=== PATIENT | female | born 1955 | race Caucasian/White ===

== ENCOUNTER → 2017-08-26 | Day surgery (SDC) | payer OTHER, SELFPAY | END | disposition home or self-care (01) | PROVIDERS: PCP Family Medicine; Visit Provider Ophthalmology | DX: H25.11 Age-related nuclear cataract, right eye (principal); G47.33 Obstructive sleep apnea (adult) (pediatric); E11.9 Type 2 diabetes mellitus without complications; Z79.4 Long term (current) use of insulin | CPT/HCPCS: J2250; J2704; J3010 ==

== ENCOUNTER 2021-10-22 08:12 | Observation (INO) | payer MEDICARE, OTHER, SELFPAY ==
[2021-10-22] VITALS (15 sets, daily range): BP systolic 117–154; BP diastolic 60–82; PULSE 61–94; RESP 10–24; TEMP 36.4–36.7; O2SAT 92–96; BMI 38.9
--- NOTE | 2021-10-22 08:43 | ED_ITS ---
HPI - Neuro Symptoms/Deficit General Chief Complaint: Neuro Symptoms/Deficit Stated Complaint: Right facial numbness Time Seen by Provider: 10/22/21 08:35 History of Present Illness HPI Narrative: 66-year-old woman with a history of diabetes, hyperlipidemia she describes no difficulties with hypertension but is on losartan, thyroid cancer in 2013 with no residual issues at this time presents with complaints of right facial numbness, facial droop and tongue being numb. She states that her entire tongue has been numb for approximately 24 hours at this time. She describes it as feel ing as if she went to the dentist. She also notes that she has not tasting as well. She had a bagel yesterday morning and did not taste it which is when she 1st be came aware of symptoms. She does note that she has had some mild nasal stuffiness and a slight scratch in her throat and has been doing some travel. She is fully vaccinated against COVID and viral type symptoms have not progressed beyond that. This morning at 7:30 a.m. she noted that the right side of her face was numb and when she looked in the mirror she was concerned that she had some mild facial asymmetry. She called her daughter this morning when she noted the acute onset of facial. code stroke initiated Related Data Home Medications Medication Instructions Recorded Confirmed aspirin 81 mg chewable tablet 81 mg PO QDAY ##0 06/03/17 insulin glargine 100 unit/mL (3 0 unit SQ QDAY ##0 06/03/17 mL) subcutaneous pen (Lantus Solostar U-100 Insulin) levocetirizine 5 mg tablet 5 mg PO QDAY ##0 06/03/17 levothyroxine 200 mcg tablet ##0 06/03/17 losartan 50 mg tablet (Cozaar) 50 mg PO QDAY ##0 06/03/17 metformin 1,000 mg tablet 1,000 mg PO BIDCC ##0 06/03/17 (Glucophage) multivitamin (Multiple Vitamins 1 tab PO QDAY ##0 06/03/17 tablet) Allergies Allergy/AdvReac Type Severity Reaction Status Date / Time lisinopril [LISINOPRIL] Allergy Unknown Verified 10/22/21 08:42 Review of Systems Review of Systems Narrative: Remainder of complete review of systems is otherwise unremarkable except for that included in the HPI. Patient History Medical History (Updated 10/22/21 @ 17:20 by Cheyanne Gipson MD) Diabetes Hyperlipidemia Hypertension Thyroid cancer Social History Smoking Status: Never smoker Exam Initial Vital Signs Initial Vital Signs: Vital Signs Pulse Rate 87 10/22/21 08:18 Blood Pressure 146/69 H 10/22/21 08:18 Pulse Oximetry 94 10/22/21 08:18 General: Healthy appearing, in no acute distress. Able to give a complete and coherent history. Well-nourished well-developed HEENT: Moist mucous membranes, normal sclera with reactive pupils, mild flattening of the right nasal labial fold Neck: No JVD, supple Respiratory: Lungs are clear to auscultation, no wheezing no rales no rhonchi. Full and symmetrical air movement Cardiac: Regular rate and rhythm no murmurs no bruits Abdomen: Soft, nontender, good bowel tones, no flank pain Skin: Warm and dry, no rashes Neurologic: Mild paresthesia right side of the face, mild flattening nasal labial fold, tongue protrudes slightly to the left when extended. NIH score= 2 Extremities: No trauma, well perfused Psych: Cooperative, appropriate insight and affect NIH Stroke Scale/Score (NIHSS)? 2 points INPUTS: 1A: Level of consciousness ?> 0 = Alert; keenly responsive 1B: Ask month and age ?> 0 = Both questions right 1C: 'Blink eyes' & 'squeeze hands' ?> 0 = Performs both tasks 2: Horizontal extraocular movements ?> 0 = Normal 3: Visual zelaya ?> 0 = No visual loss 4: Facial palsy ?> 1 = Minor paralysis (flat nasolabial fold, smile asymmetry) 5A: Left arm motor drift ?> 0 = No drift for 10 seconds 5B: Right arm motor drift ?> 0 = No drift for 10 seconds 6A: Left leg motor drift ?> 0 = No drift for 5 seconds 6B: Right leg motor drift ?> 0 = No drift for 5 seconds 7: Limb Ataxia ?> 0 = No ataxia 8: Sensation ?> 1 = Mild-moderate loss: less sharp/more dull? 9: Language/aphasia ?> 0 = Normal; no aphasia 10: Dysarthria ?> 0 = Normal 11: Extinction/inattention ?> 0 = No abnormality Course Orders Ordered: ED Orders 10/22/21 08:30 Complete Blood Count AUTO DIFF Stat Comprehensive Metabolic Panel Stat Lipid Panel Routine 10/22/21 08:45 CT Stroke Stat EKG-12 Lead Stat 10/22/21 08:48 COVID19 -Nasal RAPID/Pre-Proc Stat 10/22/21 09:15 CT angio head and neck Stat 10/22/21 11:16 EC echo doppler complete Urgent MR head/brain wo con Urgent 10/22/21 11:17 Education, smoking cessation ONGOING 10/22/21 11:20 Consult to Occupational Therapy Evaluate & Treat Consult to Physical Therapy Evaluate & Treat 10/22/21 11:21 Consult to Speech Therapy Evaluate & Treat 10/22/21 11:35 Urine Culture Stat Urine Microscopic Stat 10/23/21 05:00 Basic Metabolic Panel DAILY Complete Blood Count AUTO DIFF DAILY 10/24/21 05:00 Basic Metabolic Panel DAILY Complete Blood Count AUTO DIFF DAILY 10/25/21 05:00 Basic Metabolic Panel DAILY Complete Blood Count AUTO DIFF DAILY 10/26/21 05:00 Basic Metabolic Panel DAILY Complete Blood Count AUTO DIFF DAILY Aspirin (Aspirin Ec 81 Mg Tablet) 81 mg PO DAILY [facility] Atorvastatin Calcium (Atorvastatin 20 Mg Tablet) 40 mg PO BEDTIME BRIANDA Clopidogrel Bisulfate (Clopidogrel 75 Mg Tablet) 75 mg PO DAILY [facility] Enoxaparin Sodium (Enoxaparin 40 Mg/0.4 Ml Syringe) 40 mg SUBCUT DAILY BRIANDA Sodium Chloride (Normal Saline 0.9%) 1,000 mls @ 150 mls/hr IV CONT BRIANDA Last Admin: 10/22/21 10:28 Dose: 150 mls/hr Documented By: MLHilario Sodium Chloride (Normal Saline 0.9%) 1,000 mls @ 100 mls/hr IV CONT BRIANDA Dextrose (D10w) 250 mls @ 999 mls/hr IV PRN PRN PRN Reason: Hypoglycemia Insulin Human Lispro (Insulin Lispro 100 Unit/Ml 3ml Vial) 0 unit SUBCUT Q6H [facility]; Protocol Naloxone HCl (Naloxone 0.4 Mg/Ml Vial) 0.2 mg IV Q2MIN PRN PRN Reason: Opiate Reversal Discontinued Medications Aspirin (Aspirin 81 Mg Chew Tab) 324 mg PO NOW ONE Stop: 10/22/21 10:16 Last Admin: 10/22/21 10:28 Dose: 324 mg Documented By: MLM Clopidogrel Bisulfate (Clopidogrel 75 Mg Tablet) 300 mg PO NOW ONE Stop: 10/22/21 10:16 Last Admin: 10/22/21 10:28 Dose: 300 mg Documented By: MLM Dextrose (Dextrose 50 % In Water 25 Gm/50 Ml Syringe) 25 gm IV PRN PRN; Protocol PRN Reason: Hypoglycemia Vital Signs Vital signs: Vital Signs - 8 hr 10/22/21 09:30 10/22/21 10:00 10/22/21 10:30 Pulse Rate 69 68 69 Respiratory Rate 17 15 24 Blood Pressure Pulse Oximetry 94 94 94 10/22/21 10:32 10/22/21 10:32 10/22/21 11:00 Pulse Rate 73 66 Respiratory Rate 23 10 L Blood Pressure 141/66 H Pulse Oximetry MDM - Neuro Symptoms/Deficit Lab Data Result diagrams: 10/22/21 08:30 10/22/21 08:30 Labs: Lab Results 10/22/21 10/22/21 10/22/21 Range/Units 08:30 08:30 08:30 WBC 8.4 (4.5-11.0) X10^3/uL RBC 4.91 (4.0-5.2) X10^6/uL Hgb 13.2 (12.0-16.0) g/dL Hct 39.6 (36-46) % MCV 80.5 (80-100) fL MCH 26.9 (26-34) PG MCHC 33.4 (30-36) % RDW 14.8 (11.6-14.8) % Plt Count 287 (150-400) X10^3/uL Neut % (Auto) 73.6 (50-75) % Lymph % (Auto) 19.5 L (25-40) % [place] % (Auto) 5.3 (3-14) % Eos % (Auto) 0.9 L (2-4) % Baso % (Auto) 0.7 (0-2) % Neut # (Auto) 6200 (8584-1228) /uL Lymph # (Auto) 1600 (1822-2210) /uL [place] # (Auto) 400 (0-900) /uL Eos # (Auto) 100 (0-450) /uL Baso # (Auto) 100 (0-100) /uL Sodium 139 (137-145) mmol/L Potassium 3.9 (3.4-5.1) mmol/L Chloride 102 (98-107) mmol/L Carbon Dioxide 25 (22-32) mmol/L BUN 23 H (7-17) mg/dL Creatinine 0.68 (0.52-1.04) mg/dL Estimated GFR > 60 (>60) mL/min BUN/Creatinine Ratio 33.8 H (6-22) Glucose 194 H (80-110) mg/dL Calcium 8.5 (8.4-10.2) mg/dL Total Bilirubin 0.5 (0.2-1.3) mg/dL AST 25 (14-36) IU/L ALT 23 (<35) IU/L Alkaline Phosphatase 70 (38-126) U/L Total Protein 7.0 (6.3-8.2) g/dL Albumin 3.9 (3.5-5.0) g/dL Globulin 3.1 (1.7-4.1) g/dL Albumin/Globulin Ratio 1.3 (1.0-2.8) Triglycerides 178 H (35-150) mg/dL Cholesterol 227 H (140-199) mg/dL LDL Cholesterol, Calc 143 H (<100) mg/dL HDL Cholesterol 48 (40-60) mg/dL Urine RBC (0-5/HPF) Urine WBC (0-5/HPF) Ur Squamous Epith Cells (0-5/HPF) Urine Bacteria (None) Ur Culture Indicated? SARS-CoV-2 (PCR) (Negative) 10/22/21 10/22/21 Range/Units 08:48 11:35 WBC (4.5-11.0) X10^3/uL RBC (4.0-5.2) X10^6/uL Hgb (12.0-16.0) g/dL Hct (36-46) % MCV (80-100) fL MCH (26-34) PG MCHC (30-36) % RDW (11.6-14.8) % Plt Count (150-400) X10^3/uL Neut % (Auto) (50-75) % Lymph % (Auto) (25-40) % [place] % (Auto) (3-14) % Eos % (Auto) (2-4) % Baso % (Auto) (0-2) % Neut # (Auto) (8539-3444) /uL Lymph # (Auto) (1029-1833) /uL [place] # (Auto) (0-900) /uL Eos # (Auto) (0-450) /uL Baso # (Auto) (0-100) /uL Sodium (137-145) mmol/L Potassium (3.4-5.1) mmol/L Chloride (98-107) mmol/L Carbon Dioxide (22-32) mmol/L BUN (7-17) mg/dL Creatinine (0.52-1.04) mg/dL Estimated GFR (>60) mL/min BUN/Creatinine Ratio (6-22) Glucose (80-110) mg/dL Calcium (8.4-10.2) mg/dL Total Bilirubin (0.2-1.3) mg/dL AST (14-36) IU/L ALT (<35) IU/L Alkaline Phosphatase (38-126) U/L Total Protein (6.3-8.2) g/dL Albumin (3.5-5.0) g/dL Globulin (1.7-4.1) g/dL Albumin/Globulin Ratio (1.0-2.8) Triglycerides (35-150) mg/dL Cholesterol (140-199) mg/dL LDL Cholesterol, Calc (<100) mg/dL HDL Cholesterol (40-60) mg/dL Urine RBC None seen (0-5/HPF) Urine WBC 30-100/hpf H (0-5/HPF) Ur Squamous Epith Cells 1-5 /hpf (0-5/HPF) Urine Bacteria Many (>30) H (None) Ur Culture Indicated? Specimen cultured SARS-CoV-2 (PCR) Negative (Negative) Point of Care Testing Glucose POC 73 Urine Dip Bedside Urine Glucose Negative Bedside Urine Bilirubin - Negative Bedside Urine Ketone - Negative Urine Specific [place] 1.010 Bedside Urine Occult Blood - Negative Bedside Urine pH 6.0 Bedside Urine Protein - Negative Bedside Urine Urobilinogen - Negative Bedside Urine Nitrite - Negative Bedside Urine Leukocytes ++ [address] scan - head: Radiologist's Impression: FINDINGS:? Image quality:? Excellent.? ? CSF spaces:? Basal cisterns are patent.? No extra-axial fluid collections.? The ventricles are symmetric in size and shape.? ? Brain:? No intracranial bleeds or masses.? There is cerebral volume loss for age, with resultant ventricular and sulcal prominence.? There are periventricular and deep white matter chronic small vessel ischemic changes.? There is intracranial internal carotid artery atherosclerosis.? ? Skull and face:? Calvarium and visualized facial bones appear intact, without suspicious lesions.? ? Sinuses:? Visualized sinuses and mastoids are clear.? ? ? IMPRESSION:? Unremarkable intracranial study, without an imaging explanation found for the patient's presenting history.?? ? If there is strong clinical suspicion for an acute stroke, please consider a brain MRI for further evaluation, as it is more sensitive (assuming that there is no contraindication to MRI). ? ? Dictated by: Yuniel Gardner M.D. on 10/22/2021 at 7:53? ??CTA Head and neck CTA head and neck: Radiologist's Impression: FINDINGS:? Image quality:? Excellent.? ? BRAIN:? CSF spaces:? Ventricles are normal in size and shape.? Basal cisterns are patent.? No extra-axial fluid collections.? ? Brain:? No midline shift.? No intracranial bleeds or masses.? Sebastian-white matter interface appears intact.? Calcification can be seen within the region of the pineal gland, which is not considered to be pathologic. ? Skull and face:? Calvarium and facial bones appear intact, without suspicious lesions.? Orbits appear normal.? Incidental note is made of hyperostosis frontalis. This is not considered to be pathologic in a woman of this age. ? In this patient with this given history, scrutiny is given to the course of the right facial nerve, including within the right parotid gland.? No significant abnormalities can be seen on these images. ? Sinuses:? Sinuses and mastoids are clear.? ? HEAD CT ANGIOGRAPHY:? Anterior circulation:? Intracranial internal carotid arteries are normal in size and flow.? The flow within the paired anterior cerebral arteries is normal and symmetric.? The flow within the middle cerebral arteries is normal and symmetric.? The anterior communicating artery is seen.? No aneurysms are seen.? ? Posterior circulation:? Visualized portions of the vertebral arteries demonstrate normal caliber, and join to form a normal appearing basilar artery. There is a prominent left posterior communicating artery seen, with an accompanying diminutive left P1 segment. This is attributed to a type origin of the left posterior cerebral artery, which is considered to be a normal developmental variant of typically no clinical consequence. Flow within the posterior cerebral arteries is normal and symmetric.? No aneurysms are seen.? ? NECK CT ANGIOGRAPHY:? Carotid system:? The great vessels demonstrate a conventional anatomy as they arise from the aortic arch.? The origins of the common carotid arteries appear patent.? The common carotid arteries demonstrate normal caliber and courses.? The bifurcation regions are both widely patent.? The internal carotid arteries demonstrate normal calibers and courses.? ? Posterior circulation:? The origins of the vertebral arteries both appear widely patent.? The more superior extracranial portions of both vertebral arteries also demonstrate normal courses and calibers.? They join to form a normal appearing basilar artery.? ? Soft tissues:? Visualized neck soft tissues demonstrate no suspicious abnormalities.? Thyroidectomy change can be seen. ? Bones:? No suspicious bony lesions.? Visualized cervical spine appears normally aligned.? At least moderate disc space narrowing can be seen at C4-C5 and C5-C6.? Post erected endplate osteophytes are seen at these levels. Focal degenerative change is seen involving the C1-C2 interface anteriorly.? Milder degenerative changes are seen elsewhere.? ? ? IMPRESSION:? No significant intracranial arterial abnormality is seen.? ? Within the arteries of the neck, no hemodynamically significant stenosis can be seen. ? ? ? Incidental note is made of:? Cervical spine degenerative change Thyroidectomy ? Any quantitative measurements of stenosis were performed using NASCET criteria.? ? ? Dictated by: Yuniel Gardner M.D. on 10/22/2021 at 8:35? ?? ECG Data Interpretation: Sinus rhythm at a rate of 85 Normal intervals, normal axis No acute ischemic changes MDM Narrative Medical decision making narrative: 56-year-old woman with multiple risk factors for stroke presents with tongue numbness bilaterally for 24 hours, mild right-sided faced weakness starting at 7:30 a.m. this morning. No obvious abnormalities on head CT or CTA. No evidence of infection or acute coronary syndrome. 10:[address] Kay Smith, Stroke neurology. load with plavix 300 and dual antiplatels for 21 days. Agrees with NO TPA due to timing (24 hours of numb tongue) and low NIH score (2). agrees with admit for remainder of stroke workup. Care is reviewed with the hospitalist and patient will be admitted for remainder of workup with MRI ordered for this afternoon. Stroke Core Measures Exclusion Criteria TPA in CVA: Symptom Onset >3 or 4.5 Hours Discharge Plan Departure Patient Disposition: Admitted As Inpatient Clinical Impression: Cerebrovascular accident Admit Date/Time: 10/22/21 13:35 Admit Provider: Elbert Garland
--- NOTE | 2021-10-22 08:45 | DI.CT.S_ITS ---
PROCEDURE: CT STROKE INDICATIONS: right facial droop and paresthesia TECHNIQUE: Noncontrast 4.5 mm thick angled axial sections acquired from the foramen magnum to the vertex, with coronal reformats. For radiation dose reduction, the following was used: automated exposure control, adjustment of mA and/or kV according to patient size. COMPARISON: None. FINDINGS: Image quality: Excellent. CSF spaces: Basal cisterns are patent. No extra-axial fluid collections. The ventricles are symmetric in size and shape. Brain: No intracranial bleeds or masses. There is cerebral volume loss for age, with resultant ventricular and sulcal prominence. There are periventricular and deep white matter chronic small vessel ischemic changes. There is intracranial internal carotid artery atherosclerosis. Skull and face: Calvarium and visualized facial bones appear intact, without suspicious lesions. Sinuses: Visualized sinuses and mastoids are clear. IMPRESSION: 1. No acute intracranial abnormalities. 2. Cerebral volume loss and chronic microvascular ischemic changes. The result was communicated with Dr. Gipson prior to dictation. This study fulfills neurological imaging criteria for inclusion or exclusion of acute stroke therapies based on available published neurological guidelines. Dictated by: Easton Hernandez M.D. on 10/22/2021 at 9:04 Approved by: Easton Hernandez M.D. on 10/22/2021 at 9:05
[2021-10-22 08:56] LABS: Add Manual Diff / Slide Review NO; Basophils Absolute Auto 100 /uL (0-100); Basophils Percent Auto 0.7 % (0-2); Eosinophils Absolute Auto 100 /uL (0-450); Eosinophils Percent Auto 0.9 % (2-4); Hematocrit 39.6 % (36-46); Hemoglobin 13.2 g/dL (12.0-16.0); Lymphocytes Absolute Auto 1600 /uL (1100-4500); Lymphocytes Percent Auto 19.5 % (25-40); Mean Corpuscular HGB Conc 33.4 % (30-36); Mean Corpuscular Hemoglobin 26.9 PG (26-34); Mean Corpuscular Volume 80.5 fL (80-100); Monocytes Absolute Auto 400 /uL (0-900); Monocytes Percent Auto 5.3 % (3-14); Neutrophils Absolute Auto 6200 /uL (1500-7000); Neutrophils Percent Auto 73.6 % (50-75); Platelet Count 287 X10^3/uL (150-400); Red Blood Cell Count 4.91 X10^6/uL (4.0-5.2); Red Cell Distribution Width 14.8 % (11.6-14.8); White Blood Cell Count 8.4 X10^3/uL (4.5-11.0)
[2021-10-22 08:59] LABS: Alanine Aminotransferase 23 IU/L (<35); Albumin 3.9 g/dL (3.5-5.0); Albumin Globulin Ratio 1.3 (1.0-2.8); Alkaline Phosphatase 70 U/L (38-126); Aspartate Aminotransferase 25 IU/L (14-36); BUN Creatinine Ratio 33.8 (6-22); Bilirubin Total 0.5 mg/dL (0.2-1.3); Blood Urea Nitrogen 23 mg/dL (7-17); Calcium 8.5 mg/dL (8.4-10.2); Carbon Dioxide 25 mmol/L (22-32); Chloride 102 mmol/L (98-107); Estimated Glomerular Filt Rate > 60 mL/min (>60); Globulin 3.1 g/dL (1.7-4.1); Glucose 194 mg/dL (80-110); HEMOLYSIS < 15 (0-50); Potassium 3.9 mmol/L (3.4-5.1); Sodium 139 mmol/L (137-145)
--- NOTE | 2021-10-22 09:15 | DI.CT.S_ITS ---
PROCEDURE: CT ANGIO HEAD AND NECK INDICATIONS: right facial droop and paresthesia TECHNIQUE: Noncontrast images were performed earlier in the day and not repeated. After the administration of intravenous contrast, 1 mm thick sections acquired from the aortic arch through the [place]. Post-contrast 4.5 mm thick sections then re-acquired from the foramen magnum to the vertex. 3-dimensional [id number] (MIP) and/or volume rendering reformats were acquired of the central intracranial vasculature and neck separately. For radiation dose reduction, the following was used: automated exposure control, adjustment of mA and/or kV according to patient size. COMPARISON: [facility], CT, CT STROKE, 10/22/2021, 8:50. FINDINGS: Image quality: Excellent. BRAIN: CSF spaces: Ventricles are normal in size and shape. Basal cisterns are patent. No extra-axial fluid collections. Brain: No midline shift. No intracranial bleeds or masses. Sebastian-white matter interface appears intact. Calcification can be seen within the region of the pineal gland, which is not considered to be pathologic. Skull and face: Calvarium and facial bones appear intact, without suspicious lesions. Orbits appear normal. Incidental note is made of hyperostosis frontalis. This is not considered to be pathologic in a woman of this age. In this patient with this given history, scrutiny is given to the course of the right facial nerve, including within the right parotid gland. No significant abnormalities can be seen on these images. Sinuses: Sinuses and mastoids are clear. HEAD CT ANGIOGRAPHY: Anterior circulation: Intracranial internal carotid arteries are normal in size and flow. The flow within the paired anterior cerebral arteries is normal and symmetric. The flow within the middle cerebral arteries is normal and symmetric. The anterior communicating artery is seen. No aneurysms are seen. Posterior circulation: Visualized portions of the vertebral arteries demonstrate normal caliber, and join to form a normal appearing basilar artery. There is a prominent left posterior communicating artery seen, with an accompanying diminutive left P1 segment. This is attributed to a type origin of the left posterior cerebral artery, which is considered to be a normal developmental variant of typically no clinical consequence. Flow within the posterior cerebral arteries is normal and symmetric. No aneurysms are seen. NECK CT ANGIOGRAPHY: Carotid system: The great vessels demonstrate a conventional anatomy as they arise from the aortic arch. The origins of the common carotid arteries appear patent. The common carotid arteries demonstrate normal caliber and courses. The bifurcation regions are both widely patent. The internal carotid arteries demonstrate normal calibers and courses. Posterior circulation: The origins of the vertebral arteries both appear widely patent. The more superior extracranial portions of both vertebral arteries also demonstrate normal courses and calibers. They join to form a normal appearing basilar artery. Soft tissues: Visualized neck soft tissues demonstrate no suspicious abnormalities. Thyroidectomy change can be seen. Bones: No suspicious bony lesions. Visualized cervical spine appears normally aligned. At least moderate disc space narrowing can be seen at C4-C5 and C5-C6. Post erected endplate osteophytes are seen at these levels. Focal degenerative change is seen involving the C1-C2 interface anteriorly. Milder degenerative changes are seen elsewhere. IMPRESSION: No significant intracranial arterial abnormality is seen. Within the arteries of the neck, no hemodynamically significant stenosis can be seen. Incidental note is made of: Cervical spine degenerative change Thyroidectomy Any quantitative measurements of stenosis were performed using NASCET criteria. Dictated by: Yuniel Gardner M.D. on 10/22/2021 at 8:35 Approved by: Yuniel Gardner M.D. on 10/22/2021 at 8:40
[2021-10-22 09:21] LABS: COVID19 -Nasal RAPID Negative (Negative)
[2021-10-22] MEDS: SODIUM CHLORIDE 0.9% 1,000 ML 150 ML IV (10:28)
[2021-10-22] MEDS: ASPIRIN 81 MG CHEW TAB 324 MG PO (10:28)
[2021-10-22] MEDS: CLOPIDOGREL 75 MG TABLET 300 MG PO (10:28)
--- NOTE | 2021-10-22 11:16 | DI.MRI.S_ITS ---
PROCEDURE: MR HEAD/BRAIN WO CON INDICATIONS: stroke. Being admitted. consider this an inpt (not ED) ord TECHNIQUE: Non-contrast axial T1 spin echo, axial T2 fast spin echo, sagittal and axial FLAIR, coronal T2 fast spin echo, axial gradient echo, axial diffusion and ADC through the brain. COMPARISON: [facility], CT, CT STROKE, 10/22/2021, 8:50. FINDINGS: Image quality: Excellent. CSF spaces: Ventricles appear symmetric in size and shape. Basal cisterns are patent. No extra-axial fluid collections. Brain: No restricted diffusion to indicate recent ischemia. The major intracranial vascular flow-related signal voids are maintained. Advanced global cerebral volume loss and severe chronic microvascular ischemic changes. No evidence of cytotoxic or vasogenic edema. No findings of mass effect or midline shift. Skull and face: Calvarial bone marrow is normal in signal. Orbits are normal. Sinuses: Sinuses and mastoids are clear. IMPRESSION: No acute infarct or other acute intracranial finding. Advanced moderate global cerebral volume loss and severe chronic microvascular ischemic changes. Dictated by: Brian Rios M.D. on 10/22/2021 at 12:23 Approved by: Brian Rios M.D. on 10/22/2021 at 12:27
--- NOTE | 2021-10-22 11:16 | DI.ECHO.S_ITS ---
[facility] +---------+ [facility] +---------+ : : [address] : : : : [id number] : : : : Phone: [phone] Echocardiogram Report + + :Name: ALEJO RETANA Study Date: 10/22/2021 Height: 65 in : :[facility] ReadingLocation: Weight: 234 lb : : Gender: Female BSA: 2.1 m2 : :: 1955 Age: 66 yrs BP: 146/69 mmHg: :Reason For Study: STROKE : :Ordering Physician: MEMO, : :THAD Lam Performed By: Hafsa Bennett : :Referring: THAD HAMPTON : + + Interpretation Summary The left ventricle is normal in size. The ejection fraction is estimated to be 60-65%. The right ventricle is normal in size and function. Injection of contrast documented no interatrial shunt. No significant valvular pathology seen. The IVC is dilated (diameter is greater than 2.1 cm) yet it collapses greater than 50% with a sniff. This suggests a right atrial pressure of 8 mm Hg. Procedure: A two-dimensional transthoracic echocardiogram with color flow and Doppler was performed. The study quality was technically adequate. There is no prior echocardiogram noted for this patient. The patient was in sinus rhythm with heart rates between 62-70 bpm during the exam. Left Ventricle: The left ventricle is normal in size. Left ventricular wall thickness is borderline increased. There is no thrombus. A false chord is noted (normal variant). The ejection fraction is estimated to be 60-65%. There are no focal wall motion abnormalities. MV E/A: 0.98 Med Peak E' Cachorro: 5.0 cm/sec E/E' med: 17.3. Right Ventricle: The right ventricle is normal in size and function. Atria: The left atrium is mildly dilated. Right atrial size is normal. There is no Doppler evidence for an interatrial shunt. Injection of contrast documented no interatrial shunt. Mitral Valve: The mitral valve leaflets appear mildly thickened, but open well. There is mild mitral annular calcification. Redundant elongated chordae are noted. There is trace mitral regurgitation. Aortic Valve: The aortic valve is trileaflet. The aortic valve opens well. There is no aortic valve stenosis. No aortic regurgitation is present. Tricuspid Valve: The tricuspid valve is normal in structure and function. There is trace tricuspid regurgitation. Pulmonary artery pressures cannot be estimated because of the lack of a measurable TR jet velocity but the IVC suggests a CVP of around 8 mmHg. Pulmonic Valve: The pulmonic valve is not well seen, but is grossly normal. There is trace pulmonic regurgitation. Great Vessels: The aortic root is normal size. The dimensions of the ascending aorta are normal. The IVC is dilated (diameter is greater than 2.1 cm) yet it collapses greater than 50% with a sniff. This suggests a right atrial pressure of 8 mm Hg. Pericardium/ Pleura There is no pericardial effusion. There is no pleural effusion. MMode/2D Measurements & Calculations LVIDd: 4.3 cm LVOT diam: 2.3 cm LVIDs: 3.0 cm Ao root diam: 3.6 cm FS: 29.1 % asc Aorta Diam: 3.8 cm IVSd: 1.0 cm Ao Arch Diam (Prox Trans): 2.7 cm LVPWd: 1.00 cm LV donis. diameter/BSA (cm/m^2): 2.0 LV sys. diameter/BSA (cm/m^2): 1.4 LA A2 area: 24.3 cm2 RA long axis: 4.7 cm LA A4 area: 17.6 cm2 RA area: 12.4 cm2 LA length (vol): 4.6 cm RA vol: 28.0 ml LA vol: 78.9 ml RA : 13.3 ml/m2 LA vol index: 37.3 ml/m2 IVC diam: 2.4 cm RVD1 (basal): 3.3 cm RVD2 (mid): 3.0 cm TAPSE: 1.8 cm Doppler Measurements & Calculations Ao V2 max: 127.2 cm/sec LVOT Max Cachorro: 123.3 cm/sec Ao V2 mean: 92.8 cm/sec LV V1 max P.1 mmHg Ao max P.5 mmHg LV V1 VTI: 31.8 cm Ao mean P.9 mmHg GENTRY(I,D): 4.2 cm2 Ao V2 VTI: 32.9 cm GENTRY(V,D): 4.2 cm2 sev ratio: 0.97 GENTRY indexed to BSA (cm^2/m^2): 2.0 MV E max cachorro: 86.6 cm/sec PA V2 max: 91.4 cm/sec MV A max cachorro: 88.4 cm/sec PA V2 mean: 60.7 cm/sec MV E/A: 0.98 PA mean P.7 mmHg Med Peak E' Cachorro: 5.0 cm/sec PA pr(Accel): 36.2 mmHg E/E' med: 17.3 Lat Peak E' Cachorro: 8.1 cm/sec E/E' lat: 10.7 E/e' average: 14.0 MV dec time: 0.27 sec SV(LVOT): 136.7 ml Reading Physician:02:11 PM
--- NOTE | 2021-10-22 13:44 | P.HP_ITS ---
History of Present Illness History of Present Illness Chief complaint: Right facial numbness Narrative: cc : l facial droopy, speech broken The patient is 66 y/o morbidly obese female with comorbidities including DM type 2, Hypertension, HYperlipidemia, presnets to ER this morning. She stated that yesterday and today she woke up with no taste in her mouth, then noticed that her speech is abnormal and L side face is numb including tongue. She denies any other focal deficiencies , denies visual changes, headache, denies chest pain. shortness of breath, nausea, vomiting, diarrhea. She denies recent traveling, recent sick contacts. She denies any strokes in the past Patient History Medical History (Updated 10/22/21 @ 08:48 by Cheyanne Gipson MD) Diabetes Hyperlipidemia Hypertension Thyroid cancer Family & Social History Safety & Behavioral: Feels Safe in Current Yes Environment Tobacco & Substance use: Smoking Status Never smoker Substance Use Type does not use Meds Home Medications and Allergies Home Medications Medication Instructions Recorded Confirmed Type aspirin 81 mg chewable tablet 81 mg PO QDAY ##0 06/03/17 History insulin glargine 100 unit/mL (3 0 unit SQ QDAY ##0 06/03/17 History mL) subcutaneous pen (Lantus Solostar U-100 Insulin) levocetirizine 5 mg tablet 5 mg PO QDAY ##0 06/03/17 History levothyroxine 200 mcg tablet ##0 06/03/17 History losartan 50 mg tablet (Cozaar) 50 mg PO QDAY ##0 06/03/17 History metformin 1,000 mg tablet 1,000 mg PO BIDCC ##0 06/03/17 History (Glucophage) multivitamin (Multiple Vitamins 1 tab PO QDAY ##0 06/03/17 History tablet) Allergies Allergy/AdvReac Type Severity Reaction Status Date / Time lisinopril [LISINOPRIL] Allergy Unknown Verified 10/22/21 08:42 Review of Systems Review of Systems ROS: Yes All systems reviewed with the patient and are negative except as otherwise documented Eyes Eyes: Reports as per HPI ENT Ears, Nose, Mouth, and Throat: Yes as per HPI Cardiovascular Cardiovascular: Reports as per HPI Respiratory Respiratory: Reports as per HPI Gastrointestinal Gastrointestinal: Reports as per HPI Genitourinary Genitourinary: Reports as per HPI Musculoskeletal Musculoskeletal: Reports as per HPI Integumentary/Breasts Skin/Breast: Reports as per HPI Neurologic Neurologic: Reports as per HPI Psychiatric Psychiatric: Reports as per HPI Exam Vital Signs (past 8 hours): - 10/22/21 08:44 10/22/21 08:18 10/22/21 08:18 Temperature 98.1 F Pulse Rate 88 87 Respiratory Rate 18 Blood Pressure 146/69 H 146/69 H Pulse Oximetry 93 94 Oxygen Delivery Method Room Air 10/22/21 08:30 10/22/21 09:00 10/22/21 09:30 Temperature Pulse Rate 77 80 69 Respiratory Rate 22 13 17 Blood Pressure Pulse Oximetry 94 95 94 Oxygen Delivery Method 10/22/21 10:00 10/22/21 10:30 10/22/21 10:32 Temperature Pulse Rate 68 69 73 Respiratory Rate 15 24 23 Blood Pressure Pulse Oximetry 94 94 Oxygen Delivery Method 10/22/21 10:32 10/22/21 11:00 Temperature Pulse Rate 66 Respiratory Rate 10 L Blood Pressure 141/66 H Pulse Oximetry Oxygen Delivery Method Oxygen Delivery Method Room Air Const General: cooperative and well developed Orientation: alert, awake and oriented x3 HENMT Head: normocephalic and atraumatic Ears: external ears normal Nose: external nose normal Mouth: oral mucosae normal Eyes Pupils: PERRL EOM: EOM intact bilaterally Neck Neck: full ROM and supple Thyroid: thyroid normal Chest Chest: normal inspection of the chest Resp Auscultation: clear to auscultation bilaterally Cardio Rate: regular rate Rhythm: regular rhythm GI Inspection: normal to inspection Palpation: soft and No tender Auscultation: normal bowel sounds Back/Spine/Pelvis Back: normal to inspection Skin General: no rashes or lesions noted Neuro General: patient alert, patient awake, patient oriented x3, gait normal, moves all extremities and no focal motor deficits Cranial Nerves: CN's II-XI intact bilaterally Extrem General: normal to inspection, full ROM and no clubbing, cyanosis or edema Psych Mental Status: mental status grossly normal Mood: congruent mood Affect: normal affect Objective Labs Result Diagrams: 10/22/21 08:30 10/22/21 08:30 Labs: Laboratory Results - last 24 hr 10/22/21 10/22/21 10/22/21 08:30 08:30 08:48 WBC 8.4 RBC 4.91 Hgb 13.2 Hct 39.6 MCV 80.5 MCH 26.9 MCHC 33.4 RDW 14.8 Plt Count 287 Neut % (Auto) 73.6 Lymph % (Auto) 19.5 L Archuleta % (Auto) 5.3 Eos % (Auto) 0.9 L Baso % (Auto) 0.7 Neut # (Auto) 6200 Lymph # (Auto) 1600 Archuleta # (Auto) 400 Eos # (Auto) 100 Baso # (Auto) 100 Sodium 139 Potassium 3.9 Chloride 102 Carbon Dioxide 25 BUN 23 H Creatinine 0.68 Estimated GFR > 60 BUN/Creatinine Ratio 33.8 H Glucose 194 H Calcium 8.5 Total Bilirubin 0.5 AST 25 ALT 23 Alkaline Phosphatase 70 Total Protein 7.0 Albumin 3.9 Globulin 3.1 Albumin/Globulin Ratio 1.3 SARS-CoV-2 (PCR) Negative Assessment & Plan Assessment & Plan narrative: Possible acute stroke -CT head is negative for hemorrhages or acute changes , based on clinical picture concern for stroke -MRI and ECHO is pending -place o n observation - given asa and clopidogrel -continue antiplat daily -statin at bedtime -risk stratification -telemetry and neurocjecks DM type 2 -A1C -SSI Hypertension -permissive hypertension for now Hyperlipidemia -statin daily H/O thyroid cancer -continue levothryoxin DVT prophylaxis: lovenox Code status: dental office assistant Spent With Patient Critical Care time: I spent a total of [] minutes of critical care time on this patient's care today; this time is exclusive of procedural time.
[2021-10-22 14:23] LABS: Cholesterol 227 mg/dL (140-199); HDL Cholesterol 48 mg/dL (40-60); LDL Cholesterol Calculated 143 mg/dL (<100); Triglycerides 178 mg/dL (35-150)
[2021-10-22 14:31] LABS: Bacteria Urine Many (>30); Culture Indicated Urine Specimen Cultured; RBC Urine None Seen (0-5/HPF); Squamous Epithelial Cell Urine 1-5 /HPF (0-5/HPF); WBC Urine 30-100/HPF (0-5/HPF)
--- NOTE | 2021-10-22 16:05 | PC.NURSE ---
Pt complained of worsening facial droop and difficulty when taking a bite of her sandwich. Pt advised to stop eating until speech eval and notified Dr Garland to eval patient.
--- NOTE | 2021-10-22 16:14 | PT-IP ANOTE ---
Physical therapy order received and chart reviewed. Pt scheduled to move ot room 219 but is not on the floor yet. Will follow0-up tomorrow for evaluation.
--- NOTE | 2021-10-22 16:37 | PC.NURSE ---
evaluated by [facility] Pat[facility] PISANO with Diet, no restrictions for texture
--- NOTE | 2021-10-22 16:52 | OT.IPNOTE ---
Pt not up to the floor yet from ED, to see pt tomorrow for OT eval.
--- NOTE | 2021-10-22 16:59 | ST.IPCSEOM ---
Visit Care Team Role Provider Type Uriel Dodson DO Primary Care Provider Non-Staff Specialty: Family Practice Address: [address] [place] [address], [place], [address] Email: Cheyanne Gipson MD Emergency Provider Physician Referring Provider Specialty: Emergency Medicine Address: [address] [place] [address], [id number] Email: Elbert Garland Admit Provider Physician Attending Provider Specialty: Internal Medicine Address: [address] [place] [address], [address] Phone: Fax: Email: [email or web address] Past Medical History (Last Updated 10/22/21 @ 08:48 by Cheyanne Gipson MD) Diabetes (Medical) Hyperlipidemia (Medical) Hypertension (Medical) Thyroid cancer (Medical) 2013 Speech-Language Pathology Swallow Evaluation APPEALS EXAMINER Clinical Swallow Evaluation Start: 10/22/21 16:37 Freq: Status: Active Protocol: Document 10/22/21 16:37 ZS (Rec: 10/22/21 16:59 ZS [id number]) Clinical Swallow Evaluation Session Time Visit Start Time 16:00 Visit Stop Time 16:20 Total Visit Minutes 20 Setting Assessment Location Acute Care Visit Type Note Type Initial evaluation Next Note Type Next Note Type Treatment Note Patient Information Identification Type Name,Wristband History Per H&P: The patient is 66 y/ o morbidly obese female with comorbidities including DM type 2, Hypertension, HYperlipidemia, presents to ER this morning. She stated that yesterday and today she woke up with no taste in her mouth, then noticed that her speech is abnormal and L side face is numb including tongue. She denies any other focal deficiencies , denies visual changes, headache, denies chest pain. The pt reported she had recently visited her mother in [place] and the visit was very stressful, including a yelling match between pt and her mother. The pt stated her numbness had worsened since admission to the hospital. Subjective Observations The pt was seated upright at edge of bed when APPEALS EXAMINER arrived. She agreed to participate in swallow evaluation. Reported by Patient Current Diet Nothing by mouth Baseline Feeding Method Independent in self-feeding Objective Assessment Mental Status Alert,Responsive,Cooperative Oral Integrity WFL Dentition Within normal limits Lip Function Moderate impairment Observation of Lips at Rest Right sided weakness/Drooping Pucker Right sided weakness/drooping Lip Retraction Right sided weakness/Drooping Alternating Pucker/Lip Retraction Reduced range of motion Tongue Function Within normal limits Observations of Tongue at Rest Within normal limits Tongue Protrusion Within normal limits Observations of Jaw at Rest Within normal limits Jaw Opening Within normal limits Jaw Closing Within normal limits Hard/Soft Palate Function Within normal limits Observations of Hard/Soft Palate Within normal limits Comment Completed oral motor exam with pt. She presented with R side facial droop at rest and R labial weakness with smile and pucker. Tongue and jaw strength and ROM was WNL. Dentition was present and WNL. Difficulty maintaining labial seal, with air escaping on the R due to R labial weakness . Pt reported R facial numbness and tongue numbness. Despite numbness and R labial weakness, pt presented with clear and 100% intelligible speech. Food and Liquid Trials Position During Assessment Upright (90 degrees),In bed Liquids Trialed Thin Solids Trialed Puree,Dysphagia Mechanical, Mechanical Soft,Regular Administration Type Tea spoon,Straw,Self-feeding Oral Impairment Within functional limits Oral Phase Comments No anterior loss of bolus across all trials. Pt's a/p propulsion was WNL and minimal oral residue was observed with no pocketing of food. Pt spontaneously conducted tongue sweep following solid PO trials. No difficulty with mastication observed or reported. Concerns for chewing on tongue and cheek due to numbness, though pt reported she is not that numb and exhibited no tongue or cheek irritation following PO trials . Pharyngeal Impairment Within normal limits Pharyngeal Phase Comments No overt signs or symptoms of aspiration observed. She exhibited mildly reduced hyolaryngeal elevation and excursion. Unable to rule out silent aspiration with bedside swallow evaluation. Fatigue/Endurance Endurance WNL Results The pt presents with R side numbness and R labial weakness . Speech is clear and 100% intelligible despite numbness and weakness. No overt signs or symptoms of aspiration observed with PO trials and pt exhibited no pocketing while eating. Recommend regular diet with thin liquids. Pt is at risk for chewing on her tongue and cheek due to numbness and it is recommended the pt and NSG monitor for signs of this. Speech therapy is recommended at this time to provide oral motor exercises to decrease R side weakness and follow-up to ensure tolerance of diet order. Findings Swallowing Function Within normal limits Severity of Swallow Impairment Within normal limits Contributing Factors to Swallow Reduced oral strength/ Impairment coordination/sensation Prognosis Good Based on Age,Duration of symptoms/ severity Impact on Safety and Functioning No limitations Recommendations Instrumental Assessment No Swallowing Treatment Yes Frequency 1x per day for duration of stay at hospital Recommended Solids Regular Recommended Liquids Thin Other Recommendations Monitor for chewing on tongue and cheek due to facial numbness. Medication Recommendations As Tolerated Discharge Recommendations Home Education Patient/Caregiver Education Described results of evaluation,Patient expressed understanding of evaluation, Patient expressed agreement with goals & treatment plans, Patient expressed understanding of safety precautions,Patient expressed understanding of feeding recommendations,Patient requires further education/ training Goals Short-term Goals 1. Adolfo will perform exercises to increase strength , coordination, and ROM of swallow musculature independently to reduce R facial weakness and increase comfort with oral intake. Long-term Goals The pt will safely tolerate least restrictive diet to meet her nutrition and hydration needs.
[2021-10-23 06:03] LABS: Add Manual Diff / Slide Review NO; Basophils Absolute Auto 100 /uL (0-100); Basophils Percent Auto 0.6 % (0-2); Eosinophils Absolute Auto 100 /uL (0-450); Eosinophils Percent Auto 1.5 % (2-4); Hematocrit 38.5 % (36-46); Lymphocytes Absolute Auto 1800 /uL (1100-4500); Lymphocytes Percent Auto 23.6 % (25-40); Mean Corpuscular HGB Conc 33.7 % (30-36); Mean Corpuscular Hemoglobin 26.8 PG (26-34); Mean Corpuscular Volume 79.5 fL (80-100); Monocytes Absolute Auto 500 /uL (0-900); Monocytes Percent Auto 6.8 % (3-14); Neutrophils Absolute Auto 5300 /uL (1500-7000); Neutrophils Percent Auto 67.5 % (50-75); Platelet Count 266 X10^3/uL (150-400); Red Blood Cell Count 4.84 X10^6/uL (4.0-5.2); Red Cell Distribution Width 14.7 % (11.6-14.8); White Blood Cell Count 7.8 X10^3/uL (4.5-11.0)
[2021-10-23 06:08] LABS: BUN Creatinine Ratio 27.1 (6-22); Blood Urea Nitrogen 16 mg/dL (7-17); Calcium 8.2 mg/dL (8.4-10.2); Carbon Dioxide 28 mmol/L (22-32); Chloride 103 mmol/L (98-107); Estimated Glomerular Filt Rate > 60 mL/min (>60); Glucose 141 mg/dL (80-110); HEMOLYSIS < 15 (0-50); Potassium 4.2 mmol/L (3.4-5.1); Sodium 137 mmol/L (137-145)
[2021-10-23] MEDS: LEVOTHYROXINE 100 MCG TABLET 200 MCG PO (06:40)
[2021-10-23 08:00] VITALS: BP 134/67; PULSE 63; RESP 16; TEMP 36.8; O2SAT 94
[2021-10-23 08:55] VITALS: O2SAT 97
[2021-10-23] MEDS: INSULIN LISPRO 100 UNIT/ML 3ML VIAL SUBCUT ×2 (08:55→12:29)
[2021-10-23] MEDS: cefTRIAXone 1,000 MG in SODIUM CHLORIDE 0.9% 100 ML 200 MG IV (08:55)
[2021-10-23] MEDS: MULTIVITAMIN 1 TABLET 1 TAB PO (08:56)
[2021-10-23] MEDS: ENOXAPARIN 40 MG/0.4 ML SYRINGE SUBCUT (08:56)
[2021-10-23] MEDS: ASPIRIN EC 81 MG TABLET PO (08:56)
[2021-10-23] MEDS: CLOPIDOGREL 75 MG TABLET PO (08:56)
--- NOTE | 2021-10-23 09:27 | OT.IP.EVAL ---
Past Medical History (Last Updated 10/22/21 @ 08:48 by Cheyanne Gipson MD) Diabetes Hyperlipidemia Hypertension Thyroid cancer Occupational Therapy Inpatient Evaluation/Re-Eval M1 PT/OT-IP Prior Functional Status Start: 10/23/21 09:53 Freq: NEEDED Status: Active Protocol: Document 10/23/21 08:55 [facility] (Rec: 10/23/21 10:16 [facility] [id number]) Medical Review Prior Functional Status Communication Independent Mobility and Gait Pt use trekking poles for longer distances and walking stick at times due to her neuropathy and bad right knee, per pt bone on bone. Activities of Daily Living and IADL's Completely independent for all needs of ADl's, IADl's and drives. Social History Household Members none Living Arrangements House Number of Floors (Floors) Two Floors Number of Stairs To Enter/Railing? 2 steps from the garage with no rails and 2 steps from the front with posts on the top on the porch pt can reach to assist after getting up the first step. Pt has 6-7 step with right rail and then landing and another 6-7 steps with right rail up to her bedroom/bathroom area. Home Environment Standard Height Toilet,Walk in Shower Employment Status Retired M2 OT-IP Current Condition Start: 10/23/21 09:53 Freq: Status: Active Protocol: Document 10/23/21 08:55 [facility] (Rec: 10/23/21 10:16 [facility] [id number]) Occupational Therapy Current Condition Current Condition Evaluation Date 10/23/21 Treatment Diagnosis Right sided facial numbness Diagnosis Onset Date 10/22/21 M3 OT- IP Subjective and Pain Start: 10/23/21 09:53 Freq: Status: Active Protocol: Document 10/23/21 08:55 [facility] (Rec: 10/23/21 10:16 [facility] [id number]) OT- Subjective Occupational Therapy Visit Type Type Initial Evaluation Visit Start Time 08:55 Visit Stop Time 09:27 Total Visit Minutes 32 Occupational Therapy Visit Comments Patient Comments Pt agreed to do OT eval. Patient/Caregiver Goals TO go home. OT Pain Assessment Pain When Pain Assessed At Rest Pain Present Pain Present Denied Pain M4 OT- IP ADL's Start: 10/23/21 09:53 Freq: Status: Active Protocol: Document 10/23/21 08:55 [facility] (Rec: 10/23/21 10:16 [facility] [id number]) OT [id number] Comments OT Self-Feeding Comments Pt states is aware that the food gets stuck on the right side of her mouth but not able to get her tongue to get the food out due to weakness and uses her finger to get the food over to the other side. OT ADL-Grooming General Evaluation Grooming Ability Independent OT ADL-Oral Care General Eval Oral Care Ability Independent OT ADL-Toileting General Evaluation Toileting Ability Independent OT ADL-Bathing Comments OT Bathing Comments NOt performed. M5 OT- IP IADL's Start: 10/23/21 09:53 Freq: Status: Active Protocol: Document 10/23/21 08:55 [facility] (Rec: 10/23/21 10:16 [facility] [id number]) OT-Instrumental Activities of Daily Living Home Safety Awareness Awareness of Need for Assistance at Home Good Awareness Ability to Problem Solve Emergency Able to Problem Solve Situations Medication Management Medication Management No Deficits Identified Medication Management Comments Pt use of pill organizer. Money Management Money Management No Deficits Identified M6 OT- IP Functional Cognition Start: 10/23/21 09:53 Freq: Status: Active Protocol: Document 10/23/21 08:55 [facility] (Rec: 10/23/21 10:16 [facility] [id number]) Cognitive Factors Limiting Selfcare Function Cognitive Ability Level of Alertness Alert Patient Orientation Name,Age,Birthday,Month,Date, Year,Day of Week,Place, Situation Attention Span Ability Capable of Focused Attention, Capable of Sustained Attention Ability to Follow Commands Able to Follow Multi-Step Commands Memory Description No Deficits Noted Safety Awareness No Deficits Noted Problem Solving Ability No deficits Noted Executive Function Ability No Deficits Noted Cognitive Comments Cognitive Assessment Comments Pt appears intact for cognitive needs. Pt scored 85 seconds for [place] Making part B which implies normal but not perfect for visual attention, speed of processing, task switching, executive functioning, and mental flexbility. OT- Vision and Hearing OT- Hearing Assessment OT- Hearing Assessment WFL OT- Vision Assessment Vision History Cataracts Visual Acuity Glasses For Reading Visual Attentiveness WFL Occular Pursuits WFL Visual Tam WFL Vision Assessment Comments Pt complains of slight blurriness with right eye. Noted right eye not not blinking as often as her left eye. Right facial drop noted. M7 OT- IP Mobility and Balance Start: 10/23/21 09:53 Freq: Status: Active Protocol: Document 10/23/21 08:55 [facility] (Rec: 10/23/21 10:16 [facility] [id number]) OT-Transfer Assessment Sit to and From Stand Sit to and from Stand Independent Transfers Transfer Ability Independent Technique Transfer Destination Chair Transfer Technique Stand Step Pivot Devices Transfer Assistive Devices None Comments Mobility Comments Pt able to get around independently in the room on her own with good safety. OT- Balance Assessment Sitting Balance and Reactions Static Sitting Balance Ability Normal Dynamic Sitting Balance Ability Normal Standing Balance and Reactions Static Standing Balance Ability Normal Dynamic Standing Balance Ability Good M8 OT- IP Objective Assessments Start: 10/23/21 09:53 Freq: Status: Active Protocol: Document 10/23/21 08:55 [facility] (Rec: 10/23/21 10:16 [facility] [id number]) OT Gross Range of Motion Upper Extremity Range of Motion Assessment Within Functional Limits OT- Coordination Assessment Upper Extremity Finger to Nose Test Within Functional Limits OT-Muscle Tone Assessment Muscle Tone WNL Yes OT Sensation Assessment Comments Summary Comments Intact M9 OT- IP Assessment and Plan Start: 10/23/21 09:53 Freq: Status: Active Protocol: Document 10/23/21 08:55 [facility] (Rec: 10/23/21 10:16 [facility] [id number]) OT Summary Assessment and Plan Potential Rehabilitation Potential Excellent Analytic Complexity at Evaluation Low Summary Progress Towards Goals Progressing Toward Goals Assessment Summary Pt low complexity and here due to onset of right facial numbness and weakness. Pt has slight blurred vision on right eye but feels that she is baseline from all other needs beside her face/eating needs. Pt states has a supportive daughter that lives in [place] that can assist with her needs as needed. Pt doing well and if pt still here tomorrow to reassess her vision. Goals OT-Other Goals Pt to improve score of [place] making Part B to under 70 seconds from 85 seconds. Pt to be able to incorporate stress management in her daily routine. Days to Meet Goals 1 Frequency of Treatment Frequency Of Treatment Once a Day Treatment Plan OT Treatment Plan Vision Retraining,Patient/ Family Education,Discharge Planning Discharge Recommendations OT Discharge Recommendations Home with Assistance Transportation Needs at Discharge Private Vehicle
--- NOTE | 2021-10-23 11:02 | PT.IIE ---
Medical History (Last Updated 10/22/21 @ 08:48 by Cheyanne Gipson MD) Diabetes Hyperlipidemia Hypertension Thyroid cancer Physical Therapy Inpatient Evaluation/Re-Eval M1 PT/OT-IP Prior Functional Status Start: 10/23/21 13:15 Freq: NEEDED Status: Active Protocol: Document 10/23/21 11:02 AB (Rec: 10/23/21 13:26 AB [id number]) Medical Review Prior Functional Status Medical History Reviewed Yes Communication able to make needs known Mobility and Gait pt stated that she is independent witha ll mobilities and ambulation without AD; uses 2 trekking poles for log distance ambulation Activities of Daily Living and IADL's per OT notes: Completely independent for all needs of ADl's, IADl's and drives. Social History Household Members none Living Arrangements House Number of Floors (Floors) Two Floors Number of Stairs To Enter/Railing? 2 steps without rails to enter has 12 steps R rail ascending to get to bedroom level Home Environment Standard Height Toilet,Walk in Shower Home Equipment Hand Held Shower,Grab Bars In Shower Employment Status Retired M2 PT-IP Current Condition Start: 10/23/21 13:15 Freq: NEEDED Status: Active Protocol: Document 10/23/21 11:02 AB (Rec: 10/23/21 13:26 [email or web address]) Physical Therapy Current Condition Current Condition Evaluation Date 10/23/21 Treatment Diagnosis CVA; difficulty in walking Onset Date 10/22/21 M3 PT-IP Subjective Start: 10/23/21 13:15 Freq: NEEDED Status: Active Protocol: Document 10/23/21 11:02 AB (Rec: 10/23/21 13:26 [email or web address]) Subjective Physical Therapy Visit Type Type Initial Evaluation Visit Start Time 11:02 Visit Stop Time 11:20 Total Visit Minutes 18 Number of FUNERAL HOME ATTENDANT Visits 0 Physical Therapy Visit Comments Patient Comments agreeable to do PT Therapy Pain Assessment Pain Present Pain Present Denied Pain M4 PT-IP Mobility and Gait Start: 10/23/21 13:15 Freq: NEEDED Status: Active Protocol: Document 10/23/21 11:02 AB (Rec: 10/23/21 13:26 AB [email or web address]) PT-Bed Mobility Assessment Supine to Sit Supine to Sit Independent Sit to Supine Sit to Supine Standby Assistance Scooting Scooting to Edge of Bed Independent PT-Transfer Assessment Sit to and From Stand Sit to and from Stand Independent Equipment Transfer Assistive Device None Orthotic/Prosthetic Devices or Brace: No Transfers Transfer Destination Bed Transfer Technique ambulated Transfer Ability Level of Assist Independent,1 Person Assistance,Use of Upper Extremities Comments Mobility Comments completed sit to stand from chair mod I and ambulated to the EOB mod I without AD and completed sit<>supine mod I. with with antalgic gait but without LOB. pt stated that she has BLE neuropathy and has chronic R knee pain due to OA . agreed to do stairs. completed sit to stand mod I and amublated to the hallway without AD mod I. No LOB. completed up/down steps using R rail ascending mod I and then repeated wtihout use of rails SBA. ambulated back to her room and sat on the chair Mod I. positioned on chair. call light and table placed within reach. Gait Assessment Gait Gait Assistance Required: Independent Distance (Feet) 250 Able to Maintain Weight Bearing Status Yes During Gait Assistive Devices Assistive Device None Orthotic/Prosthetic Devices or Brace: No Gait Deviations General Gait Pattern Antalgic,Decreased Stride Length,Decreased Feet Clearance Factors Limiting Gait Function Factors Limiting Gait Function Decreased Activity Tolerance, Decreased Strength,Pain,Poor Balance,Poor Safety Awareness Stair Climbing Assessment Evaluation Level of Assist On Stairs Standby Assistance Devices Stair Climbing Assistive Devices None,Right Railing Technique/Endurance Stair Climbing Direction Ascend and Descend Stair Climbing Technique Step Over Step Number of Steps Climbed 3 Query Text: Stair Climbing Set # Repetitions (reps) 2 PT-Balance Assessment Sitting Balance and Reactions Static Sitting Balance Ability Normal Dynamic Sitting Balance Ability Good Standing Balance and Reactions Static Standing Balance Ability Good Dynamic Standing Balance Ability Good Device Used without AD M5 PT-IP Objective Assessments Start: 10/23/21 13:15 Freq: NEEDED Status: Active Protocol: Document 10/23/21 11:02 AB (Rec: 10/23/21 13:26 AB [id number]) Orientation Orientation/Cognition Level of Alertness Alert Orientation Name,Age,Birthday,Month,Date, Year,Day of Week,Place, Situation Language Function Ability No Deficits Noted Safety Awareness Understands Safety Issues Memory Description No Deficits Noted Gross Range of Motion Lower Extremity ROM Assessment Within Functional Limits Strength Lower Extremity Strength Assessment Within Functional Limits Coordination Assessment Gross Coordination Gross Coordination WNL Sensation Assessment Sensation Sensation Description Numbness Comments Sensation Comments chronic LE neuropathy Muscle Tone Muscle Tone WNL Yes M6 PT-IP Treatment Start: 10/23/21 13:15 Freq: NEEDED Status: Active Protocol: Document 10/23/21 11:02 AB (Rec: 10/23/21 13:26 [id number]) Physical Therapy Treatment Education Education Provided Safety M7 PT-IP Assessment and Plan Start: 10/23/21 13:15 Freq: NEEDED Status: Active Protocol: Document 10/23/21 11:02 AB (Rec: 10/23/21 13:26 [email or web address]) PT Summary Assessment and Plan Potential Rehabilitation Potential Fair Status of Condition at Evaluation Stable Summary Assessment Summary PT eval completed. pt is mod I with mobility and no further PT intervention indicated at this time. pt agreed that she does not need PT. pt may go home when medically stable. Frequency of Treatment Frequency Of Treatment Discharge Recommendations To Nursing Amount of Assist Needed Independent Discharge Recommendations PT Discharge Recommendations Home Transportation Needs at Discharge Private Vehicle
[2021-10-23 12:00] VITALS: BP 134/69; PULSE 81; RESP 18; TEMP 36.6; O2SAT 95
[2021-10-23] MEDS: predniSONE 20 MG TABLET 60 MG PO (13:42)
[2021-10-23] MEDS: valACYclovir 500 MG TABLET 1000 MG PO (13:42)
--- NOTE | 2021-10-23 15:37 | CM.DANOTE ---
DCP/Assessment: Reviewed chart. Patient is a 66yr old female admitted to [facility] with right facial numbness. Patient does have PCP in [place]. Primary payor is 1)Medicare 2)Self pay. Met with patient this afternoon explained CM/SW role. Patient hopes to d/c home later today. Patient underwent MRI which was negative for stroke. Patient was told by provider that she may have [place] Palsy. Patient denies any d/c planning needs at this time. CM team to continue to follow if needs arise. Anticipate that patient will need to f/u as outpatient for therapy specifically for [place] Palsy. P: Home when stable. K[facility] Discharge Planning/Care Management CM Discharge Assessment Start: 10/23/21 15:30 Freq: Status: Discharge Protocol: Document 10/22/21 08:45 KJS (Rec: 10/23/21 15:37 KJS [id number]) Discharge Planning Assessment Assigned Patient Service Specialist NIKI Quiros Contact Information Lolly Carpenter (daughter) ph# [phone] Advance Directives? No History Provided By Patient,Medical Record Prior Living Arrangements House Household Members none Type of transporation used prior to Drives own vehicle admit Comment Not currently driving Independent with ADL's Yes Is patient alert and oriented? Yes Caregiver for Another No Barriers to Discharge No Discharge Plan Home Transportation Arrangement Family to provided transport. Whiteboard Updated in Patient Room with Yes name and ext. # of Patient Service Specialist Review Status In Process Next Review Type Continued Stay Review
--- NOTE | 2021-10-23 20:41 | P.DS_ITS ---
History of Present Illness History of Present Illness Chief complaint: Right facial numbness Narrative: Per admitting provider: The patient is 66 y/o morbidly obese female with comorbidities including DM type 2, Hypertension, HYperlipidemia, presnets to ER this morning. She stated that yesterday and today she woke up with no taste in her mouth, then noticed that her speech is abnormal and L side face is numb including tongue. She denies any other focal deficiencies , denies visual changes, headache, denies chest pain. shortness of breath, nausea, vomiting, diarrhea. She denies recent traveling, recent sick contacts. She denies any strokes in the past Discharge Providers Provider Date of admission: 10/22/21 13:35 Discharge Date: 10/23/21 Primary care physician: Uriel Dodson DO Consults: 10/22/21 11:20 Consult to Occupational Therapy Evaluate & Treat Comment: Physician Instructions: Evaluate and treat Consult to Physical Therapy Evaluate & Treat Comment: Physician Instructions: Evaluate and Treat 10/22/21 11:21 Consult to Speech Therapy Evaluate & Treat Comment: Physician Instructions: Evaluate and treat Discharge provider: Garrett Naranjo MD Summary Hospital Course Discharge Diagnosis: 1. Acute Christensen's palsy 2. Type 2 Diabetes 3. Hypertension 4. Hyperlipidemia Hospital Course: Ms. Dill came in to the hospital with 1-2 days of progressively worsening right sided facial droop and numbness. She had noted tongue numbness and taste a lteration. She had a history of cold sores. She noted both lower facial droop, and right eyelid droop. She noted inability to fully close the eye. Stroke workup was done which was negative on CT head, CT angio head/neck, MRI head. Given her upper and lower facial symptoms, her time course, and her negative brain imaging she was diagnosed with [place] palsy. This did have significant effect to her facial movement and ability to close her eye. Because of this she was given one week of valtrex and prednisone. She was advised to take preventitive measures for eye dryness including artificial tears throughout the day, tear ointment before bed, and taping the eye shut before bed. She had elevated lipids, she declined statin due to side effects previously and she was started on baby aspirin. She should follow up with PCP within one week. Exam Vital Signs (past 8 hours): Oxygen Delivery Method Room Air Oxygen Flow Rate 0 Narrative Exam Narrative: GEN: no acute distress CV: regular rate and rhythm PULM: clear bilaterally NEURO: right eyelid drooping, unable to fully close eye, right facial droop, otherwise no other neurologic findings Objective Labs Result Diagrams: 10/23/21 05:35 10/23/21 05:35 Labs: Laboratory Results - last 24 hr 10/23/21 10/23/21 05:35 05:35 WBC 7.8 RBC 4.84 Hgb 13.0 Hct 38.5 MCV 79.5 L MCH 26.8 MCHC 33.7 RDW 14.7 Plt Count 266 Neut % (Auto) 67.5 Lymph % (Auto) 23.6 L [place] % (Auto) 6.8 Eos % (Auto) 1.5 L Baso % (Auto) 0.6 Neut # (Auto) 5300 Lymph # (Auto) 1800 [place] # (Auto) 500 Eos # (Auto) 100 Baso # (Auto) 100 Sodium 137 Potassium 4.2 Chloride 103 Carbon Dioxide 28 BUN 16 Creatinine 0.59 Estimated GFR > 60 BUN/Creatinine Ratio 27.1 H Glucose 141 H Calcium 8.2 L [facility] Medical History (Updated 10/22/21 @ 17:20 by Cheyanne Gipson MD) Diabetes Hyperlipidemia Hypertension Thyroid cancer Social History household members: none Smoking Status: Never smoker alcohol intake: never Discharge Plan Discharge Plan Patient Disposition: Home Provider Discharge Comment: Ms. Dill came in to the hospital with facial weakness, tongue numbness. She had evaluation for a stroke which was negative. She was placed on baby aspirin. She will talk to her doctor about being on a statin. She was diagnosed with Christensen's palsy and given treatment with prednisone for inflammation, and an anti-viral medicine called valacyclovir. She can not fully close her eye and during the day can use preservative free eye drops artificial tears four times a day. At night she will be unable to close her eye and should use a thicker ointment eye drop before bed to keep her eye lubricated. One helpful thing may be to tape the eye shut at night and then place a patch over the tape to keep it lubricated. Discharge orders & Medications Prescriptions: New aspirin 81 mg Tablet,Delayed Release (Dr/Ec) 81 mg PO DAILY Qty: 30 0RF prednisone 20 mg tablet 20 mg PO DAILY Qty: 18 0RF valacyclovir [Valtrex] 1 gram tablet 1,000 mg PO Q8H Qty: 20 0RF Continued losartan [Cozaar] 50 MG tablet 50 mg PO QDAY Qty: 0 metformin [Glucophage] 1,000 MG tablet 1,000 mg PO BIDCC Qty: 0 levothyroxine 200 MCG tablet 200 mcg PO DAILY Qty: 0 multivitamin [Multiple Vitamins] 1 EACH tablet 1 tab PO QDAY Qty: 0 potassium chloride 10 mEq tablet extended release 1 tab PO DAILY Label Comments: TAKE 2 TABLETS BY MOUTH EVERY DAY torsemide 20 mg tablet 0.5 tab PO DAILY Label Comments: TAKE 1 TO 2 TABLETS BY MOUTH EVERY MORNING Novolin 70-30 FlexPen U-100 100 unit/mL (70-30) insulin pen 30 ea SUBCUT BID Follow up/Referrals: Uriel Dodson DO [Primary Care Provider] - Visit Report/Discharge Packet Instructions: [place] Palsy Discharge Data Primary Care Provider: Uriel Dodson Attending Provider: Elbert Garland VTE Deep Vein Thrombosis/Pulmonary Embolism Present on Admission: No
== END 2021-10-23 14:15 | disposition home or self-care (01) ==
LOC: ED 11:26 → AC 14:05
PROVIDERS: Admitting Provider Internal Medicine; Emergency Provider Emergency Medicine; PCP Family Medicine; Referring Provider Emergency Medicine; Visit Provider Internal Medicine
DX: G51.0 Bell's palsy (principal); E11.9 Type 2 diabetes mellitus without complications; E78.5 Hyperlipidemia, unspecified; I10 Essential (primary) hypertension; E66.01 Morbid (severe) obesity due to excess calories; Z79.4 Long term (current) use of insulin; Z79.84 Long term (current) use of oral hypoglycemic drugs; Z68.38 Body mass index [BMI] 38.0-38.9, adult; Z85.850 Personal history of malignant neoplasm of thyroid; Z20.822 Contact with and (suspected) exposure to COVID-19
CPT/HCPCS: 36415; 70450; 70496; 70498; 70551; 80048; 80053; 80061; 81003; 81015; 82962; 85025; 87077; 87086; 87186; 87635; 92526; 92610; 93005; 93306; 96372; 97161; 97165; 99284; 99285; C9803; G0378; J0696; J1650; J1815

== ENCOUNTER 2024-08-06 17:13 | Emergency (ER) | payer MEDICARE, OTHER, SELFPAY ==
[2021-10-22 13:44] VITALS: BMI 38.9
[2024-08-06] VITALS (11 sets, daily range): BP systolic 148–183; BP diastolic 64–81; PULSE 75–95; RESP 18; TEMP 36.9; O2SAT 93–97; BMI 40.0
[2024-08-06 18:07] LABS: INR 0.9 (0.9-1.3); Prothrombin Time 10.3 SECONDS (9.4-12.5)
[2024-08-06 18:09] LABS: Hematocrit 43.3 % (36-46); Mean Corpuscular HGB Conc 32.4 % (30-36); Mean Corpuscular Hemoglobin 26.2 PG (26-34); PTT Partial Thromboplastin Tim 33 SECONDS (25.1-36.5); Platelet Count 303 X10^3/uL (150-400); Red Blood Cell Count 5.35 X10^6/uL (4.0-5.2); Red Cell Distribution Width 15.1 % (11.6-14.8); White Blood Cell Count 11.2 X10^3/uL (4.5-11.0)
[2024-08-06 18:10] LABS: Alanine Aminotransferase 20 IU/L (<35); Albumin 4.2 g/dL (3.5-5.0); Albumin Globulin Ratio 1.3 (1.0-2.8); Alkaline Phosphatase 80 U/L (38-126); Aspartate Aminotransferase 26 IU/L (14-36); BUN Creatinine Ratio 24.1 (6-22); Bilirubin Total 0.5 mg/dL (0.2-1.3); Blood Urea Nitrogen 20 mg/dL (7-17); Calcium 8.8 mg/dL (8.4-10.2); Carbon Dioxide 26 mmol/L (22-32); Chloride 103 mmol/L (98-107); Estimated Glomerular Filt Rate > 60 mL/min (>60); Globulin 3.3 g/dL (1.7-4.1); Glucose 160 mg/dL (80-110); HEMOLYSIS 16 (0-50); Potassium 3.8 mmol/L (3.4-5.1); Sodium 138 mmol/L (137-145); Total Protein 7.5 g/dL (6.3-8.2)
[2024-08-06 18:13] LABS: Add Manual Diff / Slide Review YES
[2024-08-06 18:37] LABS: Neutrophils Absolute Manual 9296 /uL (3000-5900); Total Cells Counted 100
[2024-08-06 18:38] LABS: Anisocytosis 1+
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
--- NOTE | 2024-08-06 19:25 | DI.CT.S_ITS ---
PROCEDURE: CT ABDOMEN PELVIS W CON INDICATIONS: new hematuria, no pain, large man fell on patient today. TECHNIQUE: After the administration of intravenous contrast, axial sections acquired from the lung bases to the pubic symphysis. Coronal and sagittal reformats were performed. For radiation dose reduction, the following was used: automated exposure control, adjustment of mA and/or kV according to patient size. COMPARISON: None. FINDINGS: Image quality: Diagnostic. Lower Chest: Moderate coronary artery calcification is seen. ABDOMEN: Liver: No solid mass. Diffuse fatty liver infiltration is noted. Gallbladder: No radiopaque gallstones or wall thickening. Biliary ducts: No biliary dilation. Pancreas: No ductal dilation. Spleen: Size is within normal limits. Calcification can be seen along the medial spleen. Adrenal Glands: No adrenal nodules. Kidneys and Ureters: No hydronephrosis. No solid mass. No complex renal cystic lesion which requires follow up. Stomach and Bowel: Apparent postoperative change can be seen at the gastroesophageal junction. The stomach is decompressed at the time of this study, limiting its evaluation. No dilated loops of small bowel are seen. A normal appendix is noted. There is moderate wall thickening seen within the sigmoid colon, with diverticula present within this region and mild surrounding inflammatory change. The more proximal colon is within normal limits. Peritoneum: No abnormal intraperitoneal fluid. No free air. Ventral Wall: No significant ventral hernia. Abdominal Nodes: No retroperitoneal or mesenteric adenopathy by size criteria. Vessels: Aorta and inferior vena cava are normal in size. PELVIS: Pelvic Organs: No adnexal masses are seen on either side. Bladder: No bladder wall thickening, accounting for underdistention. Pelvic Nodes: No enlarged lymph nodes. Miscellaneous: No inguinal hernias are seen. Bones: No aggressive osseous abnormality. There is a remote appearing T12 compression deformity. Age-appropriate bony degenerative changes are seen. IMPRESSION: No cause of hematuria is seen. No stones, hydronephrosis, renal masses, or bladder masses are detected. There is mild sigmoid diverticulitis. Please correlate with known patient symptoms. Differential diagnosis for the localized thickening includes neoplasm. - When clinically appropriate (following adequate treatment of the patient's current clinical episode) a colonoscopy is recommended for further evaluation for a potential underlying mass (if not already recently done). There is calcification along the medial spleen, which is attributed to the prior splenic surgery. Additional findings: Moderate coronary artery calcification Apparent gastroesophageal junction postoperative change Remote appearing T12 compression deformity Fatty liver infiltration Normal appendix Dictated by: Yuniel Gardner M.D. on 08/06/2024 at 19:09 Approved by: Yuniel Gardner M.D. on 08/06/2024 at 19:14
[2024-08-06 19:55] LABS: Appearance Urine UA CLOUDY
[2024-08-06 19:56] LABS: Bacteria Urine Many (>30); Color Urine UA BROWN; RBC Urine >100/HPF (0-5/HPF); Squamous Epithelial Cell Urine None Seen (0-5/HPF); Urine Volume 10mL (unspun); WBC Urine 30-100/HPF (0-5/HPF)
[2024-08-06 19:57] LABS: Culture Indicated Urine Specimen Cultured
[2024-08-06] MEDS: AMOXICILLIN/CLAV 875/125 MG 1 TAB PO (20:49)
== END 2024-08-06 20:55 | disposition home or self-care (01) ==
PROVIDERS: Family Medicine; Emergency Provider Emergency Medicine; PCP Family Medicine
DX: N39.0 Urinary tract infection, site not specified (principal); K57.32 Diverticulitis of large intestine without perforation or abscess without bleeding; X58.XXXA Exposure to other specified factors, initial encounter
CPT/HCPCS: 51798; 74177; 80053; 81001; 85007; 85025; 85610; 85730; 87077; 87086; 87186; 99283; 99284; Q9967